=== PATIENT | female | born 2000 | race Caucasian/White ===

== ENCOUNTER 2021-06-17 19:19 | Emergency (ER) | payer OTHER ==
[2021-06-17] MEDS ORDERED: SODIUM CHLORIDE 1,000 ML IV STA ×2 (19:30→21:09)
[2021-06-17] MEDS ORDERED: ONDANSETRON 4 MG/2 ML VIAL IVPUSH ONE ×2 (19:30→21:09)
[2021-06-17 19:33] VITALS: BP 126/86; PULSE 127; TEMP 98.6; BMI 21.4
[2021-06-17] MEDS ORDERED: ONDANSETRON 4 MG/2 ML VIAL ONE ×2 (19:46→21:07)
[2021-06-17 20:05] LABS: ALBUMIN 4.5 g/dl (3.4-5.0); BILIRUBIN,TOTAL 0.6 mg/dl (0.2-1); CALCIUM 9.9 mg/dl (8.5-10); CREATININE 0.7 mg/dl (0.55-1.3); TOT PROT 7.9 g/dl (6.4-8.2)
[2021-06-17 20:20] LABS: EPITHELIAL CELLS FEW /hpf
[2021-06-17 21:05] LABS: BASO % 0.1 % (0-2.0); EOS % 0.2 % (0-4.5); HEMATOCRIT 39.8 % (32.4-45.2); HEMOGLOBIN 13.5 GM/dL (10.7-15.3); LYMPH % 6.9 % (8-40); MCH 26.6 pg (25.7-33.7); MCHC 33.8 g/dl (32.0-36.0); MEAN CELL VOLUME 78.6 fl (80-96); MEAN PLT VOLUME 9.8 fl (7.5-11.1); MONO % 3.7 % (3.8-10.2); NEUT % 89.1 % (42.8-82.8); PLATELET COUNT 249 10^3/uL (134-434); RBC 5.07 M/mm3 (3.60-5.2); RDW 13.5 % (11.6-15.6)
[2021-06-17] MEDS ORDERED: PANTOPRAZOLE SODIUM 40 MG VIAL IVPB ONE (21:36)
[2021-06-17] MEDS ORDERED: PANTOPRAZOLE SODIUM 40 MG VIAL ONE (21:40)
[2021-06-18 14:09] LABS: SARS-CoV-2 NAA Not Detected (Not Detected)
== END 2021-06-17 22:04 | disposition home or self-care (01) ==
LOC: FER 19:19
PROC: 3E033GC Introduction of Other Therapeutic Substance into Peripheral Vein, Percutaneous Approach (ICD-10-PCS; principal; 2021-06-17)
PROC: 3E033GC Introduction of Other Therapeutic Substance into Peripheral Vein, Percutaneous Approach (ICD-10-PCS; 2021-06-17)
PROC: 3E033GC Introduction of Other Therapeutic Substance into Peripheral Vein, Percutaneous Approach (ICD-10-PCS; 2021-06-17)
PROC: 3E0337Z Introduction of Electrolytic and Water Balance Substance into Peripheral Vein, Percutaneous Approach (ICD-10-PCS; 2021-06-17)
PROC: 3E0337Z Introduction of Electrolytic and Water Balance Substance into Peripheral Vein, Percutaneous Approach (ICD-10-PCS; 2021-06-17)
DX: R11.2 Nausea with vomiting, unspecified (principal)
CPT/HCPCS: 36415; 76705-TC; 80053; 81003; 81015; 83690; 84703; 85025; 99284-25; C9803; U0003; U0005

== ENCOUNTER 2023-02-22 12:35 | Inpatient (IN) | payer OTHER ==
[2023-02-22 14:17] VITALS: BMI 26.6
[2023-02-22 14:59] LABS: BASO % 0.2 % (0-2.0); EOS % 0.1 % (0-4.5); HEMATOCRIT 40.5 % (32.4-45.2); HEMOGLOBIN 12.8 GM/dL (10.7-15.3); LYMPH % 13.7 % (8-40); MCH 26.4 pg (25.7-33.7); MCHC 31.6 g/dl (32.0-36.0); MEAN CELL VOLUME 83.4 fl (80-96); MEAN PLT VOLUME 9.1 fl (7.5-11.1); MONO % 4.1 % (3.8-10.2); NEUT % 81.9 % (42.8-82.8); PLATELET COUNT 124 10^3/uL (134-434); RBC 4.86 M/mm3 (3.60-5.2); WHITE BLOOD COUNT 7.1 K/mm3 (4.0-10.0)
[2023-02-22 15:00] LABS: INR 0.95 (0.83-1.09)
[2023-02-22] MEDS ORDERED: ELECTROLYTE-148 SOLN 1,000 ML IV SCH (15:00)
[2023-02-22] MEDS ORDERED: OXYTOCIN 30 UNITS in 0.9% NS 30 UNIT/500 ML INFUS.BAG IVPB ONE (15:10)
[2023-02-22] MEDS ORDERED: OXYTOCIN 30 UNITS in 0.9% NS 30 UNIT/500 ML INFUS.BAG IVPB SCH (15:15)
[2023-02-22 15:46] LABS: POTASSIUM 3.7 mmol/L (3.5-5.1)
[2023-02-22 15:47] LABS: CALCIUM 9.5 mg/dL (8.5-10.1)
[2023-02-22 15:48] LABS: BLOOD UREA NITROGEN 5.9 mg/dL (7-18)
[2023-02-22 15:51] LABS: CREATININE 0.7 mg/dL (0.55-1.3)
[2023-02-22] MEDS ORDERED: FENTANYL/BUPIVACAINE/NS/PF - PCEA - 50 ML DISP.SYRIN EP ONE ×2 (17:29→22:47)
[2023-02-22] MEDS ORDERED: NALOXONE HCL 0.4 MG/ML VIAL IVPUSH PRN (17:36)
[2023-02-22] MEDS ORDERED: BUPIVACAINE HCL/PF 0.25% (2.5MG/ML) 10 ML VIAL ONE (17:38)
[2023-02-22] MEDS ORDERED: FENTANYL CITRATE/PF 50 MCG/ML VIAL ONE (17:38)
[2023-02-22] MEDS: FENTANYL/BUPIVACAINE/NS/PF - PCEA - 50 ML DISP.SYRIN EP SCH (17:50)
[2023-02-23] MEDS ORDERED: OXYTOCIN 20 UNITS in 0.9% NS 20 UNIT/1,000 ML INFUS.BAG IV ONE (00:50)
[2023-02-23] MEDS ORDERED: LIDOCAINE HCL 1% PRESERVATIVE FREE - 30ML VIAL ONE (00:50)
[2023-02-23 01:59] LABS: CORD BASE EXCESS -7.2 mmol/L (0-2); CORD HCO3 21.9 mmHg (20-29); CORD PCO2 57.5 mmHg (30-78); CORD pH 7.198 (7.14-7.44)
[2023-02-23] MEDS ORDERED: METHYLERGONOVINE MALEATE 0.2 MG/1 ML AMP IM PRN (02:00)
[2023-02-23] MEDS ORDERED: OXYTOCIN 20 UNITS in 0.9% NS 20 UNIT/1,000 ML INFUS.BAG IV SCH (02:00)
[2023-02-23] MEDS ORDERED: ACETAMINOPHEN 325 MG TABLET (FP) PO PRN (02:00)
[2023-02-23] MEDS ORDERED: WITCH HAZEL 50% (TUCKS) 40 PAD/JAR PAD TP PRN (02:00)
[2023-02-23] MEDS ORDERED: oxyCODONE HCL 5 MG TABLET PO PRN (02:00)
[2023-02-23] MEDS ORDERED: BENZOCAINE 28 GM HEMORRHOIDAL OINTMENT TP PRN (02:00)
[2023-02-23] MEDS ORDERED: BISACODYL 10 MG SUPP.RECT RC PRN (02:00)
[2023-02-23] MEDS ORDERED: BENZOCAINE 20% 57 GM BOTTLE TP PRN (02:00)
[2023-02-23 02:02] LABS: CORD HCO3 20.7 mmHg (20-29); CORD PCO2 44.8 mmHg (30-78); CORD pH 7.283 (7.14-7.44)
[2023-02-23] MEDS: IBUPROFEN 600 MG TABLET (FP) PO PRN (11:05)
[2023-02-23] MEDS: PRENATAL VITAMINS W/ FOLIC ACID TABLET (FP) PO SCH (11:05)
[2023-02-23] MEDS: FENTANYL/BUPIVACAINE/NS/PF - PCEA - 50 ML DISP.SYRIN EP SCH (21:05)
[2023-02-24] MEDS: IBUPROFEN 600 MG TABLET (FP) PO PRN ×2 (05:20→09:25)
[2023-02-24 07:36] LABS: BASO % 0.3 % (0-2.0); EOS % 0.9 % (0-4.5); HEMOGLOBIN 11.2 GM/dL (10.7-15.3); LYMPH % 21.4 % (8-40); MCH 26.7 pg (25.7-33.7); MCHC 32.1 g/dl (32.0-36.0); MEAN CELL VOLUME 83.3 fl (80-96); MEAN PLT VOLUME 9.7 fl (7.5-11.1); MONO % 7.5 % (3.8-10.2); NEUT % 69.9 % (42.8-82.8); PLATELET COUNT 119 10^3/uL (134-434); RBC 4.21 M/mm3 (3.60-5.2); RDW 18.1 % (11.6-15.6); WHITE BLOOD COUNT 9.9 K/mm3 (4.0-10.0)
[2023-02-24] MEDS: PRENATAL VITAMINS W/ FOLIC ACID TABLET (FP) PO SCH (09:22)
[2023-02-24 13:17] VITALS: BP 108/67; PULSE 72; RESP 16; TEMP 98.6
[2023-02-24] MEDS ORDERED: SENNOSIDES/DOCUSATE COMBO (SENNA PLUS) TABLET (UD) PO PRN (22:00)
== END 2023-02-24 15:15 | disposition home or self-care (01) | DRG 560 ==
LOC: JLDR 12:35 → J3W 02-23 03:25
PROVIDERS: ADMIT Obstetrics & Gynecology; ATTEND Obstetrics & Gynecology
PROC: 10E0XZZ Delivery of Products of Conception, External Approach (ICD-10-PCS; principal; 2023-02-23)
PROC: 0W8NXZZ Division of Female Perineum, External Approach (ICD-10-PCS; 2023-02-23)
DX: O80 Encounter for full-term uncomplicated delivery (principal); Z3A.39 39 weeks gestation of pregnancy; Z37.0 Single live birth
CPT/HCPCS: 36415; 36600; 59025; 76805-TC; 76819-TC; 80048; 82803; 85025; 85610; 85730; 86780; 86850; 86900; 86901; 96360; G0463-25